=== PATIENT | female | born 1990 | race Two or more races ===

== ENCOUNTER 2021-01-18 13:42 | Emergency (ER) | payer SELFPAY ==
[~2021-01-18] VITALS: Ht 167.6 cm; Wt 70.0 kg
[2021-01-18 13:44] VITALS: BP 174/98
== END 2021-01-18 16:06 | disposition home or self-care (01) ==
LOC: ER 14:39
DX: I10 Essential (primary) hypertension (principal)
CPT/HCPCS: 99283; Z7610